=== PATIENT | female | born 1960 | race Caucasian/White ===

== ENCOUNTER 2023-01-27 14:44 | Outpatient (CLI) | payer OTHER | END 2023-01-27 14:45 | disposition home or self-care (01) | LOC: CSHMRI 14:44 | PROVIDERS: ATTEND Physician Assistant | DX: R15.9 Full incontinence of feces (principal); Q76.49 Other congenital malformations of spine, not associated with scoliosis; M51.36 Other intervertebral disc degeneration, lumbar region; Z98.890 Other specified postprocedural states; M51.16 Intervertebral disc disorders with radiculopathy, lumbar region; M47.816 Spondylosis without myelopathy or radiculopathy, lumbar region | CPT/HCPCS: 72148 ==